=== PATIENT | female | born 1995 | race Caucasian/White ===

== ENCOUNTER 2017-01-15 15:28 | Emergency (ER) | payer BC ==
[2017-01-15 15:57] LABS: Amorphous Sediment,Urine Rare /hpf; Appearance,Urine Cloudy (Clear); Bacteria,Urine Rare /hpf; Bilirubin,Urine Negative (Negative); Glucose,Urine (UA) Negative (Negative); Ketones,Urine Negative (Negative); Leukocyte Esterase,Urine Moderate (Negative); Mucus,Urine Moderate /hpf; Nitrite,Urine Negative (Negative); PH, Urine 6.5 (5.0-8.0); Particle Count 11088; Protein,Urine 1+ (Negative); RBC,Urine 1 /hpf (0-5); Specific Gravity,Urine 1.021 (1.001-1.035); Squamous Epithelial Cell,Urine 12 /hpf (0-4); UA Billing (MACRO vs. MICRO) MICRO; WBC,Urine 15 /hpf (0-5)
[2017-01-15] MEDS ORDERED: METOCLOPRAMIDE 5 MG/ML 2 ML VIAL IVP STA (16:38)
[2017-01-15] MEDS ORDERED: SODIUM CHLORIDE 0.9% 1,000 ML IV STA (16:38)
[2017-01-15] MEDS ORDERED: diphenhydrAMINE 50 MG/ML 1 ML VIAL IVP STA (16:38)
[2017-01-15] MEDS ORDERED: ACETAMINOPHEN TAB 500 MG TAB PO STA (16:39)
[2017-01-15] MEDS ORDERED: KETOROLAC 30 MG/ML 1 ML VIAL IVP STA (16:39)
--- NOTE | 2017-01-15 17:17 | ED ---
Headache HPI - General Chief Complaint: Headache Stated Complaint: Headache Time Seen by Provider: 01/15/17 16:26 Source: RN notes reviewed, old records reviewed Mode of arrival: ambulatory Limitations: no limitations - History of Present Illness Initial Comments: 21-year-old female presents emergency Department chief complaint of headache, nosebleed and sinus pain for the past 3 days. Patient reports that she saw a urgent care physician and started her on Augmentin for sinusitis. She reports she did not get the prescription filled and she saw them yesterday. She reports that they told her to come to the ER if there is any worsening signs or symptoms that she decided to come today. Patient states that her headache is worse with bright lights. She reports that when she blew hershe did have some blood clots but has not had any nosebleeds since then. Patient states that she has had a mild fever. The dose of Motrin was given this morning. Patient denies any chest pain or shortness of breath. Denies any abdominal pain concerning for or dysuria or abdominal symptoms. - Related Data Home Medications Medication Instructions Recorded Confirmed Vienva-28 1 tab PO DAILY 01/15/17 01/15/17 Allergies Allergy/AdvReac Type Severity Reaction Status Date / Time codeine AdvReac Nausea & Verified 01/15/17 17:18 Vomiting Review of Systems ROS Statement: Those systems with pertinent positive or pertinent negative responses have been documented in the HPI. ROS Other: All systems not noted in ROS Statement are negative. Past Medical History Additional Past Medical History / Comment(s): concussion History of Any Multi-Drug Resistant Organisms: None Reported Past Surgical History: Appendectomy Additional Past Surgical History / Comment(s): wisdom teeth extraction Past Psychological History: Anxiety Smoking Status: Current every day smoker Past Alcohol Use History: None Reported Past Drug Use History: None Reported General Exam - General Exam Comments Initial Comments: 21-year-old female. No acute distress. Limitations: no limitations General appearance: alert, in no apparent distress Head exam: Present: atraumatic, normocephalic, normal inspection Eye exam: Present: normal appearance, PERRL, EOMI. Absent: scleral icterus, conjunctival injection, periorbital swelling ENT exam: Present: normal exam, mucous membranes moist Neck exam: Present: normal inspection. Absent: tenderness, meningismus, lymphadenopathy Respiratory exam: Present: normal lung sounds bilaterally. Absent: respiratory distress, wheezes, rales, rhonchi, stridor Cardiovascular Exam: Present: regular rate, normal rhythm, normal heart sounds. Absent: systolic murmur, diastolic murmur, rubs, gallop, clicks GI/Abdominal exam: Present: soft, normal bowel sounds. Absent: distended, tenderness, guarding, rebound, rigid Extremities exam: Present: normal inspection, full ROM, normal capillary refill. Absent: tenderness, pedal edema, joint swelling, calf tenderness Back exam: Present: normal inspection Neurological exam: Present: alert, oriented X3, CN II-XII intact Psychiatric exam: Present: normal affect, normal mood Skin exam: Present: warm, dry, intact, normal color. Absent: rash Course Vital Signs 01/15/17 15:31 Temperature 100.7 F H Pulse Rate 133 H Respiratory 18 Rate Blood Pressure 131/84 O2 Sat by Pulse 99 Oximetry Medical Decision Making - Medical Decision Making 21-year-old female presents emergency Department chief complaint of headache, nosebleed and sinus pain for the past 3 days. Patient reports that she saw a urgent care physician and started her on Augmentin for sinusitis. She reports she did not get the prescription filled and she saw them yesterday. She reports that they told her to come to the ER if there is any worsening signs or symptoms that she decided to come today. Patient states that her headache is worse with bright lights. She reports that when she blew hershe did have some blood clots but has not had any nosebleeds since then. Patient has no evidence of meningeal signs at this time. No neck stiffness. Negative Kernig's and Brudzinski sign. Patient did receive the IV lab work and pain medications. Patient reevaluated and still better and denies any headache or pain. Asians white count is normal. No other acute abnormalities in her lab findings. Patient will be discharged at this time given an initial dose of Augmentin. Discussed follow-up with primary care provider. Also discussed other concerns for meningeal signs and to return if worsening signs or symptoms occur. Discussed taking Motrin and Tylenol area patient nurse's treatment plan will comply. Return parameters were discussed. - Lab Data Result diagrams: 01/15/17 17:30 01/15/17 17:30 Lab Results 07/12/17 07/12/17 07/12/17 Range/Units 15:36 15:36 17:30 WBC 7.2 (4.0-11.0) k/uL RBC 4.24 (3.80-5.40) m/uL Hgb 13.4 (11.4-16.0) gm/dL Hct 37.5 (34.0-46.0) % MCV 88.5 (80.0-100.0) fL MCH 31.6 (25.0-35.0) pg MCHC 35.7 (31.0-37.0) g/dL RDW 11.7 (11.5-15.5) % Plt Count 329 (150-450) k/uL Neutrophils % 73 % Lymphocytes % 23 % Monocytes % 3 % Eosinophils % 0 % Basophils % 0 % Neutrophils # 5.2 (1.3-7.7) k/uL Lymphocytes # 1.6 (1.0-4.8) k/uL Monocytes # 0.2 (0-1.0) k/uL Eosinophils # 0.0 (0-0.7) k/uL Basophils # 0.0 (0-0.2) k/uL PT (9.0-12.0) sec INR (<1.1) APTT (22.0-30.0) sec Sodium (137-145) mmol/L Potassium (3.5-5.1) mmol/L Chloride (98-107) mmol/L Carbon Dioxide (22-30) mmol/L Anion Gap mmol/L BUN (7-17) mg/dL Creatinine (0.52-1.04) mg/dL Est GFR (MDRD) Af Amer (>60 ml/min/1.73 sqM) Est GFR (MDRD) Non-Af (>60 ml/min/1.73 sqM) Glucose (74-99) mg/dL Plasma Lactic Acid Alvaro (0.7-2.0) mmol/L Calcium (8.4-10.2) mg/dL Total Bilirubin (0.2-1.3) mg/dL AST (14-36) U/L ALT (9-52) U/L Alkaline Phosphatase (38-126) U/L Total Protein (6.3-8.2) g/dL Albumin (3.5-5.0) g/dL Urine Color Yellow Urine Appearance Cloudy H (Clear) Urine pH 6.5 (5.0-8.0) Ur Specific [place] 1.021 (1.001-1.035) Urine Protein 1+ H (Negative) Urine Glucose (UA) Negative (Negative) Urine Ketones Negative (Negative) Urine Blood Negative (Negative) Urine Nitrite Negative (Negative) Urine Bilirubin Negative (Negative) Urine Urobilinogen 3.0 (<2.0) mg/dL Ur Leukocyte Esterase Moderate H (Negative) Urine RBC 1 (0-5) /hpf Urine WBC 15 H (0-5) /hpf Ur Squamous Epith Cells 12 H (0-4) /hpf Amorphous Sediment Rare H (None) /hpf Urine Bacteria Rare H (None) /hpf Urine Mucus Moderate H (None) /hpf Urine HCG, Qual Not Detected (Not Detectd) 01/15/17 01/15/17 01/15/17 Range/Units 17:30 17:30 17:30 WBC (4.0-11.0) k/uL RBC (3.80-5.40) m/uL Hgb (11.4-16.0) gm/dL Hct (34.0-46.0) % MCV (80.0-100.0) fL MCH (25.0-35.0) pg MCHC (31.0-37.0) g/dL RDW (11.5-15.5) % Plt Count (150-450) k/uL Neutrophils % % Lymphocytes % % Monocytes % % Eosinophils % % Basophils % % Neutrophils # (1.3-7.7) k/uL Lymphocytes # (1.0-4.8) k/uL Monocytes # (0-1.0) k/uL Eosinophils # (0-0.7) k/uL Basophils # (0-0.2) k/uL PT 10.8 (9.0-12.0) sec INR 1.1 (<1.1) APTT 22.2 (22.0-30.0) sec Sodium 141 (137-145) mmol/L Potassium 4.0 (3.5-5.1) mmol/L Chloride 108 H (98-107) mmol/L Carbon Dioxide 21 L (22-30) mmol/L Anion Gap 12 mmol/L BUN 4 L (7-17) mg/dL Creatinine 0.60 (0.52-1.04) mg/dL Est GFR (MDRD) Af Amer >60 (>60 ml/min/1.73 sqM) Est GFR (MDRD) Non-Af >60 (>60 ml/min/1.73 sqM) Glucose 83 (74-99) mg/dL Plasma Lactic Acid Alvaro 0.9 (0.7-2.0) mmol/L Calcium 9.6 (8.4-10.2) mg/dL Total Bilirubin 1.1 (0.2-1.3) mg/dL AST 30 (14-36) U/L ALT 33 (9-52) U/L Alkaline Phosphatase 67 (38-126) U/L Total Protein 6.9 (6.3-8.2) g/dL Albumin 4.4 (3.5-5.0) g/dL Urine Color Urine Appearance (Clear) Urine pH (5.0-8.0) Ur Specific [place] (1.001-1.035) Urine Protein (Negative) Urine Glucose (UA) (Negative) Urine Ketones (Negative) Urine Blood (Negative) Urine Nitrite (Negative) Urine Bilirubin (Negative) Urine Urobilinogen (<2.0) mg/dL Ur Leukocyte Esterase (Negative) Urine RBC (0-5) /hpf Urine WBC (0-5) /hpf Ur Squamous Epith Cells (0-4) /hpf Amorphous Sediment (None) /hpf Urine Bacteria (None) /hpf Urine Mucus (None) /hpf Urine HCG, Qual (Not Detectd) Disposition Clinical Impression: Sinusitis, Headache Disposition: HOME SELF-CARE Condition: Good Instructions: Acute Headache (ED) Additional Instructions: Patient advised to complete her antibiotic prescription as prescribed. Return to the emergency department if any alarming signs or symptoms occur. Referrals: Ezra Ballard MD [Primary Care Provider] - 1-2 days Time of Disposition: 18:18
[2017-01-15 17:45] LABS: Basophils % (A) 0 %; CH 31.5; CHCM 35.7; Eosinophils % (A) 0 %; HCT 37.5 % (34.0-46.0); HDW 2.41; HGB 13.4 gm/dL (11.4-16.0); Luc % (Auto) 1; Lymphocytes # (A) 1.6 k/uL (1.0-4.8); Lymphocytes % (A) 23 %; MCH 31.6 pg (25.0-35.0); MCHC 35.7 g/dL (31.0-37.0); MCV 88.5 fL (80.0-100.0); Mean Platelet Volume 6.8; Monocytes # (A) 0.2 k/uL (0-1.0); Monocytes % (A) 3 %; Neutrophils # (A) 5.2 k/uL (1.3-7.7); Neutrophils % (A) 73 %; RBC 4.24 m/uL (3.80-5.40); RDW 11.7 % (11.5-15.5); WBC 7.2 k/uL (4.0-11.0); WBC (Perox) 7.53
[2017-01-15 17:56] LABS: ALT 33 U/L (9-52); AST 30 U/L (14-36); Alkaline Phosphatase 67 U/L (38-126); Anion Gap 12 mmol/L; Blood Urea Nitrogen 4 mg/dL (7-17); Calcium 9.6 mg/dL (8.4-10.2); Carbon Dioxide 21 mmol/L (22-30); Chloride 108 mmol/L (98-107); Glucose 83 mg/dL (74-99); INR 1.1 (<1.1); Non-African American GFR(MDRD) >60 (>60 ml/min/1.73 sqM); Partial Thromboplastin Time 22.2 sec (22.0-30.0); Prothrombin Time 10.8 sec (9.0-12.0); Sodium 141 mmol/L (137-145); Total Bilirubin 1.1 mg/dL (0.2-1.3); Total Protein 6.9 g/dL (6.3-8.2)
[2017-01-15] MEDS ORDERED: AMOXIC-POT CLAV 875MG STARTER 2 EACH TABLET PO STA (18:18)
[2017-01-15 18:29] VITALS: BP 107/57; PULSE 69; RESP 19; TEMP 99.1
== END 2017-01-15 18:46 | disposition home or self-care (01) ==
LOC: EC 15:28
DX: J32.9 Chronic sinusitis, unspecified (principal); F17.200 Nicotine dependence, unspecified, uncomplicated; Z79.3 Long term (current) use of hormonal contraceptives; Z88.5 Allergy status to narcotic agent
CPT/HCPCS: 36415; 80053; 83605; 85025; 85610; 85730; 81001; 81025; 87040; 87086; 99284; 96374; 96375 ×2; 96361; J1200; J2765; J1885

== ENCOUNTER → 2022-06-25 | Outpatient (CLI) | payer BC ==
--- NOTE | 2022-06-25 15:06 | US ---
EXAMINATION TYPE: US pelvic complete DATE OF EXAM: 06/25/2022 COMPARISON: CT abdomen pelvis 11/18/2012. CLINICAL HISTORY: N92.0 EXCESSIVE AND FREQUENT MENSTRUATION. Irregular menses. TECHNIQUE: Transabdominal (TA). Transabdominal sonographic images of the pelvis were acquired. EXAM MEASUREMENTS: Uterus: 9.3 x 4.3 x 5.6 cm Endometrial Stripe: 1.0 cm Right Ovary: 4.2 x 2.5 x 3.1 cm Left Ovary: 3.6 x 2.4 x 3.1 cm 1. Uterus: Anteverted wnl 2. Endometrium: wnl 3. Right Ovary: 1.8 cm follicle seen. 4. Left Ovary: wnl 5. Bilateral Adnexa: wnl 6. Posterior cul-de-sac: wnl IMPRESSION: 1. No acute process. 2. Endometrial thickness is within normal limits.
== END | disposition home or self-care (01) ==
LOC: RADUSWWP 14:41
PROVIDERS: ATTEND Family Medicine
DX: N92.0 Excessive and frequent menstruation with regular cycle (principal)
CPT/HCPCS: 76856

== ENCOUNTER 2024-09-04 19:20 | Outpatient (CLI) | payer OTHER ==
[2024-09-04 22:26] VITALS: BP 135/75; PULSE 105; RESP 16; TEMP 97.3
--- NOTE | 2024-10-01 11:04 | P.MSEPDOC ---
Presenting Problems - Arrival Data Date of Arrival on Unit: 09/04/24 Time of Arrival on Unit: 19:20 Mode of Transport: Ambulatory - Complaint OB-Reason for Admission/Chief Complaint: Possible Onset of Labor Comment: Patient arrives to [facility] with complaint of contractions that are 10 minutes apart. Medical History - Information : 1 Para: 0 Term: 0 : 0 Abortions: Spontaneous or Elective: 0 Number of Living Children: 0 - Gestational Age Gestational Age by LEXX (wks/days): 39 Weeks and 0 Days Review of Systems - Review of Systems Constitutional: No problems Breast: No problems ENT: No problems Cardiovascular: No problems Respiratory: No problems Gastrointestinal: No problems Genitourinary: No problems Musculoskeletal: No problems Neurological: No problems Skin: No problems Vital Signs - Temperature Temperature: 97.3 F Temperature Source: Temporal Artery Scan - Pulse Right Brachial Pulse Rate: 105 Pulse Assessment Method: Automatic Cuff - Respirations Respiratory Rate: 16 Oxygen Delivery Method: Room Air O2 Sat by Pulse Oximetry: 97 - Blood Pressure Right Arm Blood Pressure: 135/75 Blood Pressure Mean: 95 Blood Pressure Source: Automatic Cuff Medical Screen Scoring - Cervical Exam Dilation (cm): 1 Station: -3 Membranes: Intact - Uterine Contractions Frequency From (mins): 2 Frequency To (mins): 6 Duration From (seconds): 50 Duration To (seconds): 90 Intensity: Mild Resting: Soft to palpation - Assessment - Baby A Baseline FHR: 120 Heart Rate - NICHD Category: Category I (Normal) NST: Reactive Physician Notification - Physician Notified Physician Notified Date: 09/04/24 Physician Notified Time: 21:00 Physician: Calvin Vera - Notification Comment Comment: Dr. Vera on unit. Reported on patient that presents to triage for contractions. Patient was a difficulty cervical exam but 1/thick/high. Cat 1 heart tones. Contractions 2-4 minutes apart rated at a 7/10. Patient lives in [facility] so additional time has been given for cervical exam recheck. Patient to be discharged home if cervical exam is the same. Cervical exam after 2 hours remains the same. Patient discharged home. Maternal Triage Index - Non-Urgent/Priority 4 Non-Urgent Priority 4: Yes Criteria Met for Priority 4: 39 0/7 contractions Disposition - Disposition OB Disposition: Discharge to home Discharge Date: 09/04/24 Discharge Time: 22:00 I agree with the RN Medical Screening Exam: Yes Physician's MSE Comment: I have neither seen nor examined the patient. Case reviewed; plan agreed upon as documented in EMR&OBIX.: Yes Diagnosis: RELATED CONDITIONS, UNSPECIFIED, THIRD TRIMESTER
== END 2024-09-04 22:00 ==
LOC: FBPOP 19:20
PROVIDERS: ATTEND Obstetrics & Gynecology
DX: O26.93 Pregnancy related conditions, unspecified, third trimester (principal); O99.333 Smoking (tobacco) complicating pregnancy, third trimester; F17.200 Nicotine dependence, unspecified, uncomplicated; Z3A.39 39 weeks gestation of pregnancy; Z88.4 Allergy status to anesthetic agent; Z88.5 Allergy status to narcotic agent
CPT/HCPCS: 59025; 84112; G0463; 99213

== ENCOUNTER 2024-09-13 06:15 | Inpatient (IN) | payer OTHER ==
--- NOTE | 2024-09-13 16:58 | P.HPOB ---
History of Present Illness H&P Date: 09/13/24 Chief Complaint: induction of labor Ms. Welch is a 29 year old at 40 weeks and 2 days with EDC of 09/11/2024 by LMP consistent with 14 week US who presents for induction of labor. The has been complicated by finding of "ambiguous genitalia" on anatomy US. The patient had another Level 2 US with MFM who deemed the genitalia to be female. She also had NIPT done that was 46 XX. The fetus is estimated in the 21%ile for growth based on a 32 week growth US. work-up: blood type B negative (did not receive/does not need rhogam due to Rh negative fetus on [facility] testing), antibody screen negative, rubella immune, VDRL non-reactive, HBsAg negative, HIV negative, 1 hour GTT wnl, GBS negative. Past Medical History Additional Past Medical History / Comment(s): concussion History of Any Multi-Drug Resistant Organisms: None Reported Past Surgical History: Appendectomy Additional Past Surgical History / Comment(s): wisdom teeth extraction Smoking Status: Never smoker Medications and Allergies Home Medications Medication Instructions Recorded Confirmed Type Vit No.179/Iron/Folic 1 tab PO DAILY 09/04/24 09/04/24 History [ Tablet] Allergies Allergy/AdvReac Type Severity Reaction Status Date / Time codeine AdvReac Nausea & Verified 09/04/24 19:26 Vomiting Exam Focused physical exam is performed. This is a healthy-appearing in no apparent distress. Breathing is non-labored. Abdomen is gravid and non-tender. Cervical exam is 2/80/-3. AROM is undertaken with clear fluid noted. Extremities non-tender and non-edematous. heart tones are Category I and tocometer is graphing irregular contractions. Assessment and Plan Assessment: 29 year old at 40 weeks and 2 days presenting for induction of labor Plan: Admit, clear liquid diet, pitocin per protocol, continuous EFM and tocometer.
[2024-09-13] MEDS ORDERED: TERBUTALINE 1 MG/ML VIAL SQ PRN (17:29)
[2024-09-13] MEDS ORDERED: miSOPROStoL 200 MCG TAB RECTAL PRN (17:29)
[2024-09-13] MEDS ORDERED: OXYTOCIN 10 UNIT/ML 1 ML VIAL IM PRN (17:29)
[2024-09-13] MEDS ORDERED: miSOPROStoL 200 MCG TAB PO PRN (17:29)
[2024-09-13] MEDS ORDERED: METHYLERGONOVINE 0.2 MG/ML 1 ML AMP IM PRN (17:29)
[2024-09-13] MEDS ORDERED: CARBOPROST TROMETHAMINE 250 MCG/ML 1 ML AMP IM PRN (17:29)
[2024-09-13] MEDS ORDERED: TRANEXAMIC 1,000 MG/100ML-NACL 1,000 MG in EMPTY BAG 1 BAG IV PRN (17:29)
[2024-09-13] MEDS: OXYTOCIN 30 UNITS/500 ML NS 30 UNIT in SALINE 1 500ML.BAG IV SCH (17:56)
[2024-09-13] MEDS: LACTATED RINGERS 1,000 ML IV SCH (17:56)
[2024-09-13 18:00] LABS: Basophils % (A) 0 %; Eosinophils % (A) 0 %; HCT 37.1 % (34.0-46.0); HGB 12.2 gm/dL (11.4-16.0); Lymphocytes # (A) 2.2 k/uL (1.0-4.8); Lymphocytes % (A) 22 %; MCH 31.3 pg (25.0-35.0); MCV 95.1 fL (80.0-100.0); Mean Platelet Volume 8.5; Monocytes # (A) 0.5 k/uL (0-1.0); Monocytes % (A) 5 %; Neutrophils # (A) 6.9 k/uL (1.3-7.7); Neutrophils % (A) 69 %; Platelet Count 233 k/uL (150-450); RDW 12.3 % (11.5-15.5); WBC 9.9 k/uL (3.8-10.6)
[2024-09-13] MEDS ORDERED: ROPIVACAINE 5 MG/ML 30 ML VIAL ONE (20:42)
[2024-09-13] MEDS ORDERED: SODIUM CHLORIDE 0.9% 250 ML BAG ONE (20:42)
[2024-09-13] MEDS ORDERED: fentaNYL (PF) 50 MCG/ML 5 ML AMP ONE (20:42)
[2024-09-14] MEDS: LIDOCAINE 0.5% (PF) 5 MG/ML (50 ML SDV) SQ PRN (01:00)
--- NOTE | 2024-09-14 01:22 | P.PROBDLV ---
Vaginal Delivery Note - . Vaginal Delivery Note: DATE OF SERVICE: 09/14/2024 PROCEDURE: Normal Vaginal Delivery ATTENDING: Dr. Lesley Green MD ESTIMATED BLOOD LOSS: 200 mL FINDINGS: VFI, Apgars 9/9. Weight 7 pounds and 2 ounces (3260 grams) PROCEDURE: Ms. Welch is a 29 year old at 40 weeks and 2 days presenting to labor and delivery for induction. For further details regarding the , please review the admitting H&P. Pitocin was titrated per protocol. AROM was undertaken at 1623 revealing clear amniotic fluid. She received epidural anesthesia per her request. The patient was completely dilated at 2341. She pushed effectively with Category I to II FHTs. A viable female infant was delivered at 0053 in occiput anterior position. The infant was placed on the maternal abdomen and bulb suctioned. The infant was noted to be spontaneously crying. Cord was clamped and cut after a 60-second delay. The was handed off to the pediatric team. Placenta was delivered whole with gentle cord traction at 0058. Oxytocin was started to facilitate uterine tone. Uterine fundus was found to be firm and below the umbilicus upon fundal massage. Thorough examination of the cervix, vagina, periurethral area, and perineum revealed a second degree perineal laceration that was infiltrated with lidocaine and repaired with 2-0 Vicryl in the usual fashion. The patient is stable and allowed to begin the bonding process.
[2024-09-14] MEDS ORDERED: ZOLPIDEM 5 MG TAB PO PRN (01:23)
[2024-09-14] MEDS ORDERED: diphenhydrAMINE 25 MG CAP PO PRN (01:23)
[2024-09-14] MEDS ORDERED: diphenhydrAMINE 50 MG CAP PO PRN (01:23)
[2024-09-14] MEDS ORDERED: HYDROCORTISONE 2.5% RECTAL CREAM 30 GM TUBE RECTAL PRN (01:23)
[2024-09-14] MEDS ORDERED: diphenhydrAMINE 50 MG/ML 1 ML VIAL IVP PRN ×2 (01:23)
[2024-09-14] MEDS ORDERED: BENZOCAINE/MENTHOL SPRAY 1 GM/SPRAY AEROSOL TOPICAL PRN (01:23)
[2024-09-14] MEDS ORDERED: LANOLIN CREAM 1 GM TUBE TOPICAL PRN (01:23)
[2024-09-14] MEDS ORDERED: SIMETHICONE 80 MG CHEWABLE PO PRN (01:23)
[2024-09-14] MEDS: IBUPROFEN 800 MG TAB PO SCH (03:15)
[2024-09-14] MEDS: Rhogam IMMUNE GLOBULIN 1,500 UNIT/1 ML IM ONE (05:58)
[2024-09-14] MEDS: SENNOSIDES-DOCUSATE SODIUM 1 EACH TAB PO SCH (08:28)
[2024-09-14] MEDS: ACETAMINOPHEN TAB 500 MG TAB PO SCH (14:49)
[2024-09-15 07:36] LABS: Basophils % (A) 0 %; Eosinophils # (A) 0.1 k/uL (0-0.7); Eosinophils % (A) 1 %; HCT 30.6 % (34.0-46.0); Lymphocytes # (A) 2.8 k/uL (1.0-4.8); Lymphocytes % (A) 29 %; MCH 34.4 pg (25.0-35.0); MCV 95.5 fL (80.0-100.0); Mean Platelet Volume 8.9; Monocytes # (A) 0.4 k/uL (0-1.0); Monocytes % (A) 4 %; Neutrophils % (A) 63 %; Platelet Count 179 k/uL (150-450); RBC 3.21 m/uL (3.80-5.40); RDW 12.9 % (11.5-15.5); WBC 9.6 k/uL (3.8-10.6)
[2024-09-15 09:07] VITALS: BP 110/73; PULSE 86; RESP 16; TEMP 97.6
--- NOTE | 2024-09-15 13:20 | P.DS ---
Providers Date of admission: 09/13/24 16:11 Expected date of discharge: 09/15/24 Attending physician: Lesley Green MD Primary care physician: Stated None Hospital Course: Ms. Welch is a 29 year old now PPD#1 s/p after induction of labor for post-dates. Her labor and delivery were uncomplicated. She is meeting all milestones appropriately. She is eating, drinking, voiding, ambulating without difficulty. Lochia is light. She denies chest pain, shortness of breath, pain/swelling in the legs, lightheadedness with ambulation. She is encouraged to call the office with any heavy bleeding, fevers, chills, foul smelling discharge, or breast complaints. She will follow up in the office in 6 weeks for appointment. Patient Condition at Discharge: Good Plan - Discharge Summary New Discharge Prescriptions: New Ibuprofen [Motrin] 600 mg PO Q6HR PRN #30 tab PRN Reason: Mild Pain (Scale 1 To 3) Acetaminophen Tab [Tylenol] 650 mg PO Q6H PRN #30 tab PRN Reason: Mild Pain (Scale 1 To 3) No Action Aspirin [Children's Aspirin] 81 mg PO DAILY Vit No.179/Iron/Folic [ Tablet] 1 tab PO DAILY Discharge Medication List Vit No.179/Iron/Folic [ Tablet] 1 tab PO DAILY 09/04/24 [History] Aspirin [Children's Aspirin] 81 mg PO DAILY 09/13/24 [History] Acetaminophen Tab [Tylenol] 650 mg PO Q6H PRN #30 tab 09/15/24 [Rx] Ibuprofen [Motrin] 600 mg PO Q6HR PRN #30 tab 09/15/24 [Rx] Follow up Appointment(s)/Referral(s): Lesley Green MD [STAFF PHYSICIAN] - 10/25/24 1:15 pm Discharge Disposition: HOME SELF-CARE
== END 2024-09-15 14:05 | disposition home or self-care (01) | DRG 560 ==
LOC: 4FBP 16:11
PROVIDERS: ADMIT Obstetrics & Gynecology; ATTEND Obstetrics & Gynecology
PROC: 10907ZC Drainage of Amniotic Fluid, Therapeutic from Products of Conception, Via Natural or Artificial Opening (ICD-10-PCS; principal; 2024-09-13)
PROC: 3E033VJ Introduction of Other Hormone into Peripheral Vein, Percutaneous Approach (ICD-10-PCS; principal; 2024-09-13)
PROC: 10E0XZZ Delivery of Products of Conception, External Approach (ICD-10-PCS; 2024-09-14)
PROC: 0KQM0ZZ Repair Perineum Muscle, Open Approach (ICD-10-PCS; 2024-09-14)
DX: O48.0 Post-term pregnancy (principal); O26.893 Other specified pregnancy related conditions, third trimester; Z67.21 Type B blood, Rh negative; Z88.5 Allergy status to narcotic agent; O70.1 Second degree perineal laceration during delivery; Z3A.40 40 weeks gestation of pregnancy; Z37.0 Single live birth
CPT/HCPCS: 85025; 86850; 86900; 86901